=== PATIENT | male | born 1990 | race Caucasian/White ===

== ENCOUNTER 2017-01-07 09:41 | Day surgery (SDC) | payer BC ==
[2017-01-07] VITALS (7 sets, daily range): BP systolic 113–134; BP diastolic 48–70; PULSE 73–89; TEMP 98.3–99.7
[~2017-01-07] VITALS: Ht 175.3 cm; Wt 81.8 kg
[2017-01-07] MEDS ORDERED: XALATAN EYE DROPS OU (09:49)
[2017-01-07] MEDS ORDERED: RT ADVAIR 128 DISKUS IH (09:49)
[2017-01-07 10:31] LABS: HEMOGLOBIN 15.6 g/dl (13.5-18.0); MEAN CELL VOLUME 85 fl (80.0-100.0); MEAN CORPUSCULAR HEMOGLOBIN 30 pg (27.0-31.0); MEAN CORPUSCULAR HGB CONC 35 g/dl (33.0-37.0); MEAN PLATELET VOLUME 9.6 fl (7.4-10.4); PLATELET COUNT 192 K/mm3 (130-400); RED BLOOD COUNT 5.29 M/mm3 (4.20-5.60); REDCELL DISTRIBUTION WIDTH-CV 12.2 % (11.5-14.5); WHITE BLOOD COUNT 17.5 K/mm3 (4.8-10.8)
[2017-01-07 10:32] LABS: ADD PATHOLOGY DIFF REVIEW NO
[2017-01-07 10:38] LABS: ADJUSTED CALCIUM 9.1 mg/dL (8.4-10.2); ALBUMIN 4.4 gm/dL (3.5-5.0); BILIRUBIN,TOTAL 1.8 mg/dL (0.0-1.0); CALCIUM 9.4 mg/dL (8.4-10.2); CREATININE, serum 0.96 mg/dL (0.66-1.25); POTASSIUM 3.7 mmol/L (3.4-5.0); TOTAL PROTEIN 8.1 gm/dL (6.4-8.2)
[2017-01-07 11:49] LABS: BAND 4 % (0-10); NEUTROPHILS 86 % (42.0-75.2); PLATELET ESTIMATE NORMAL (NORMAL); TOTAL CELLS COUNTED 100
[2017-01-07 12:45] LABS: PH 6 (5-8); SQUAMOUS EPITHELIAL 0-2 /hpf; URINE APPEARANCE Clear; URINE BACTERIA None Seen /hpf; URINE BILIRUBIN Negative (NEGATIVE); URINE BLOOD Negative (NEGATIVE); URINE COLOR Yellow; URINE GLUCOSE Negative (NEGATIVE); URINE KETONE Trace (NEGATIVE); URINE RBC 0-2 /hpf; URINE UROBILINOGEN Negative (NEGATIVE); URINE WBC 0-2 /hpf
== END 2017-01-08 00:37 | disposition home or self-care (01) ==
LOC: COL.ER 09:41 → SDCO 10:54 → SURG 10:54 → SDCO 01-08 00:37
PROVIDERS: Emergency Medicine
DX: K35.80 Unspecified acute appendicitis (principal); H40.9 Unspecified glaucoma
CPT/HCPCS: OP; J0696; J1100; J1885; J2405; J2704; J2710; J3010; J7030; J7120; Q9967